=== PATIENT | female | born 1990 | race Two or more races ===

== ENCOUNTER → 2024-01-15 15:06 | Outpatient (CLI) | payer OTHER | END | disposition home or self-care (01) | LOC: PRENATAL 15:06 | PROVIDERS: ATTEND Obstetrics & Gynecology Maternal & Fetal Medicine | DX: O36.80X0 Pregnancy with inconclusive fetal viability, not applicable or unspecified (principal); Z36.82 Encounter for antenatal screening for nuchal translucency; Z36.9 Encounter for antenatal screening, unspecified; Z3A.11 11 weeks gestation of pregnancy ==

== ENCOUNTER 2024-06-11 09:20 | Outpatient (CLI) | payer OTHER | END 2024-06-11 09:21 | disposition home or self-care (01) | LOC: PRENATAL 09:20 | PROVIDERS: ATTEND Obstetrics & Gynecology Maternal & Fetal Medicine | DX: O26.843 Uterine size-date discrepancy, third trimester (principal); O36.8130 Decreased fetal movements, third trimester, not applicable or unspecified; Z3A.32 32 weeks gestation of pregnancy ==

== ENCOUNTER 2024-07-17 15:00 | Inpatient (IN) | payer OTHER ==
[~2024-07-17] VITALS: Ht 165.1 cm; Wt 87.1 kg
[2024-08-03 21:00] VITALS: BP 121/76
[2024-08-03 21:04] LABS: URINE APPEARANCE Clear; URINE BILIRRUBIN Negative (NEGATIVE); URINE BLOOD Negative; URINE COLOR Yellow; URINE GLUCOSE Negative (NEGATIVE); URINE KETONE Negative (NEGATIVE); URINE LEUKOCYTE Trace; URINE NITRATE Negative; URINE PROTEIN Negative (NEGATIVE); URINE UROBILINOGEN 0.2 E.U./dl
[2024-08-03 21:05] LABS: HEMATOCRIT 37.8 % (36.0-45.00); MEAN CELL VOLUME 92.1 fL (80.00-100.00); MEAN CORPUSCULAR HEMOGLOBIN 31.7 pg (27.00-32.0); MEAN CORPUSCULAR HGB CONC 34.4 g/dl (32.0-36.0); PLATELET COUNT 202 K/uL (150-450); RED CELL DISTRIBUTION WIDTH 13.4 % (11.5-14.5)
[2024-08-03 21:05] LABS: URINE BACTERIA 4021.4 uL (0.0-1933); URINE CAST 2.13 uL (0.0-1.40); URINE RBC 3.9 uL (0.0-20.8); URINE WBC 51.4 uL (0.0-23.2)
[2024-08-03] MEDS ORDERED: PRENATAL TABLE1 EAC1 PO (21:20)
[2024-08-03] MEDS ORDERED: ZYRTEC10 M3 PO (21:21)
[2024-08-03] MEDS ORDERED: FLONASE16 GM NASAL (21:23)
[2024-08-03] MEDS ORDERED: PROBIOTIC1 EACH PO (21:23)
[2024-08-03 21:27] LABS: INR 1.39; PARTIAL THROMBOPLASTIN TIME 27.5 SECONDS (22.0-34.0); PROTHROMBIN TIME 14.8 SECONDS (9.0-11.5)
[2024-08-03 21:31] LABS: URINE YEAST FEW /hpf
[2024-08-03 21:32] LABS: ALBUMIN 2.9 gm/dL (3.4-5.0); BILIRUBIN TOTAL 0.46 mg/dL (0.3-1.2); CALCIUM 8.9 mg/dL (8.5-10.1); CREATININE SERUM 0.5 mg/dL (0.55-1.02); GFR 142.98; GLOBULINA 3.8 G/DL (2.4-3.5); POTASSIUM 4.13 mEq/L (3.5-5.1); TOTAL PROTEIN 6.7 gm/dL (6.4-8.2)
[2024-08-03 23:20] VITALS: BP 129/70
[2024-08-03] MEDS ORDERED: RINGERS SOLUTION,LACTATED 1,000 ML IV SCH (23:30)
[2024-08-04 03:34] VITALS: BP 128/74
[2024-08-04] MEDS ORDERED: MISOPROSTOL 25 MCG/4 ML GEL.W.APPL VAG NR (06:30)
[2024-08-04 07:41] VITALS: BP 124/67
[2024-08-04 11:31] VITALS: BP 116/72
[2024-08-04] MEDS ORDERED: MISOPROSTOL 25 MCG TABLET VAG ONE (12:30)
[2024-08-04 15:52] VITALS: BP 119/71
[2024-08-04] MEDS ORDERED: MISOPROSTOL 50 MCG TABLET VAG ONE (16:45)
[2024-08-04 19:03] VITALS: BP 127/72
[2024-08-04] MEDS ORDERED: PROMETHAZINE HCL 25 MG/ML AMPUL IV PRN (22:30)
[2024-08-04] MEDS ORDERED: MEPERIDINE HCL/PF 25 MG/ML VIAL IV PRN (22:30)
[2024-08-04 23:35] VITALS: BP 118/66
[2024-08-05] VITALS (8 sets, daily range): BP systolic 108–139; BP diastolic 55–79
[2024-08-05] MEDS ORDERED: OXYTOCIN 500 ML IV ONE (04:30)
[2024-08-05] MEDS ORDERED: DOCUSATE SODIUM 100MG CAP PO SCH (09:09)
[2024-08-05] MEDS ORDERED: FF) RHO(D) IMMUNE GLOBULIN (POM) IM SCH (09:15)
[2024-08-05] MEDS ORDERED: IBUprofen 600 MG TABLET PO PRN (09:15)
[2024-08-05] MEDS ORDERED: ERYTHROMYCIN BASE OPHT 1GM EACH TUBE OP ONE (09:15)
[2024-08-05] MEDS ORDERED: OXYTOCIN 1,000 ML IV SCH (09:15)
[2024-08-05] MEDS ORDERED: CHLORHEXIDINE GLUCONATE 120 ML BOTTLE TOP ONE (09:15)
[2024-08-05] MEDS ORDERED: LIDOCAINE HCL 1% 10ML VIAL PERCUT ONE ×2 (09:15→09:30)
[2024-08-05] MEDS ORDERED: HYDROCORTISONE 2.5% 30 GM TUBE TOP SCH (10:39)
[2024-08-05] MEDS ORDERED: BENZOCAINE/MENTHOL 90 ML BOTTLE TOP SCH (13:00)
[2024-08-05 17:39] LABS: HEMATOCRIT 32.2 % (36.0-45.00); HEMOGLOBIN 11.1 g/dL (12.0-15.00); MEAN CELL VOLUME 91.6 fL (80.00-100.00); MEAN CORPUSCULAR HEMOGLOBIN 31.6 pg (27.00-32.0); MEAN CORPUSCULAR HGB CONC 34.5 g/dl (32.0-36.0); PLATELET COUNT 240 K/uL (150-450); RED BLOOD COUNT 3.51 M/uL (4.00-6.00); RED CELL DISTRIBUTION WIDTH 13.5 % (11.5-14.5)
[2024-08-06 02:48] VITALS: BP 134/76
[2024-08-06 09:04] VITALS: BP 135/72
[2024-08-06 12:55] VITALS: BP 122/70
[2024-08-06] MEDS ORDERED: FF) RHO(D) IMMUNE GLOBULIN (POM) IM STA (14:05)
[2024-08-06 17:11] VITALS: BP 127/73
[2024-08-06 21:18] VITALS: BP 111/72
[2024-08-07 00:30] VITALS: BP 109/67
[2024-08-07 06:47] LABS: HEMATOCRIT 26.8 % (36.0-45.00); HEMOGLOBIN 9.5 g/dL (12.0-15.00); MEAN CELL VOLUME 92.1 fL (80.00-100.00); MEAN CORPUSCULAR HEMOGLOBIN 32.7 pg (27.00-32.0); MEAN CORPUSCULAR HGB CONC 35.5 g/dl (32.0-36.0); PLATELET COUNT 190 K/uL (150-450); RED BLOOD COUNT 2.91 M/uL (4.00-6.00); RED CELL DISTRIBUTION WIDTH 13.9 % (11.5-14.5)
[2024-08-07] MEDS ORDERED: FUSION PLUS CA1 EACH PO (07:10)
[2024-08-07 10:50] VITALS: BP 121/77
[2024-08-07 16:00] VITALS: BP 105/72
[2024-08-08] VITALS: BP 125/78
[2024-08-08 08:18] VITALS: BP 102/64
== END 2024-08-08 16:13 | disposition home or self-care (01) | DRG 806 ==
LOC: SURG 07-27 15:00 → LDR 08-03 18:38 → OB/GYN 08-03 18:38
PROVIDERS: ADMIT Obstetrics & Gynecology; ATTEND Obstetrics & Gynecology
PROC: 4A1HXCZ Monitoring of Products of Conception, Cardiac Rate, External Approach (ICD-10-PCS; 2024-08-03)
PROC: 3E0P7VZ Introduction of Hormone into Female Reproductive, Via Natural or Artificial Opening (ICD-10-PCS; 2024-08-04)
PROC: 10E0XZZ Delivery of Products of Conception, External Approach (ICD-10-PCS; principal; 2024-08-05)
PROC: 0KQM0ZZ Repair Perineum Muscle, Open Approach (ICD-10-PCS; 2024-08-05)
PROC: 0W8NXZZ Division of Female Perineum, External Approach (ICD-10-PCS; 2024-08-05)
PROC: 3E033VJ Introduction of Other Hormone into Peripheral Vein, Percutaneous Approach (ICD-10-PCS; 2024-08-05)
DX: O70.1 Second degree perineal laceration during delivery (principal); O41.03X0 Oligohydramnios, third trimester, not applicable or unspecified; Z37.0 Single live birth; Z3A.40 40 weeks gestation of pregnancy; Z20.822 Contact with and (suspected) exposure to COVID-19